=== PATIENT | female | born 1960 | race Caucasian/White ===

== ENCOUNTER 2017-04-25 17:30 | Emergency (ER) | payer OTHER ==
[~2017-04-25] VITALS: Ht 165.1 cm; Wt 108.9 kg
[~2017-04-25 17:30] MED LIST: ACETAMINOPHEN-1 EAC1 PO; AMLODIPINE BESY10 MG PO; ASPIR 8181 MG PO; CARDIZEM CD240 MG PO; FLEXERIL PO; HYDROCHLOROTH12.5 M1 PO; HYDROCODONE-AP1 EAC6 PO; LEVOTHYROXIN0.075 MG PO; PHENTERMINE H37.5 MG PO; TRAMADOL 50 MG50 MG PO; UNICOMPLEX M TA1 TA1 PO; ZOFRAN ODT4 MG PO
[2017-04-25 17:41] VITALS: BP 165/95
[2017-04-25] MEDS ORDERED: IBUPROFEN 600600 M1 PO (18:23)
[2017-04-25] MEDS ORDERED: NORCO 5-325 TA1 EACH PO (18:23)
== END 2017-04-25 18:50 | disposition home or self-care (01) ==
LOC: M.ERS 17:30
DX: S59.902A Unspecified injury of left elbow, initial encounter (principal); I10 Essential (primary) hypertension; E03.9 Hypothyroidism, unspecified; Z88.0 Allergy status to penicillin; Z90.710 Acquired absence of both cervix and uterus; Z90.49 Acquired absence of other specified parts of digestive tract

== ENCOUNTER → 2017-04-28 | Outpatient (CLI) | payer OTHER ==
[~2017-04-28] MED LIST changes: +CELEXA10 MG PO; +ESTRADIOL 1 MG T1 M1 PO; +IBUPROFEN 600600 M1 PO; +IBUPROFEN 800800 MG PO; +NORCO 5-325 TA1 EACH PO
[2017-04-28 12:58] LABS: HEMATOCRIT 40.5 % (37.0-47.0); HEMOGLOBIN 13.7 gm/dL (12.0-15.0); MCH 29.6 pg (26.0-34.0); MCHC 33.7 g/dL (28.0-37.0); MCV 87.9 fL (80.0-100.0); MPV 8.1 fl. (7.2-11.1); RBC 4.61 mil/uL (4.20-5.00); RDW-CV 13.1 % (10.5-14.5); WBC 6.7 thou/uL (4.0-11.0)
[2017-04-28 13:02] LABS: URINE BILIRUBIN NEGATIVE (Negative); URINE BLOOD NEGATIVE (Negative); URINE CLARITY CLEAR; URINE COLOR YELLOW; URINE GLUCOSE-RANDOM NEGATIVE (Negative); URINE KETONES NEGATIVE (Negative); URINE LEUKOCYTES NEGATIVE (Negative); URINE NITRITE NEGATIVE (Negative); URINE PROTEIN NEGATIVE (Negative); URINE SPECIFIC GRAVITY 1.015 (1.005-1.030); URINE UROBILINOGEN 0.2 E.U./dl (0.2-1.0)
[2017-04-28 13:17] LABS: ALBUMIN 4.2 g/dL (3.4-5.0); CALCIUM 9.7 mg/dL (8.5-10.1); CREATININE 0.9 mg/dL (0.6-1.3); TOTAL BILIRUBIN 0.4 mg/dL (<0.1-1.0)
== END ==
LOC: M.LAB 12:29
PROVIDERS: General Practice
DX: E03.9 Hypothyroidism, unspecified (principal); I10 Essential (primary) hypertension; E66.3 Overweight

== ENCOUNTER → 2017-09-22 | Outpatient (CLI) | payer OTHER | LOC: M.RAD 13:42 | DX: Z12.31 Encounter for screening mammogram for malignant neoplasm of breast (principal); N63.20 Unspecified lump in the left breast, unspecified quadrant ==

== ENCOUNTER → 2017-10-05 | Outpatient (CLI) | payer OTHER ==
--- NOTE | 2017-10-07 14:35 | PATH ---
[address] [address] PATHOLOGY RPT PROCEDURE Name: FLORENCIA EID Room: [facility] Frannie#: [id number] Admission: 10/05/17 Date of : 60 Discharge: Report #: [id number] Path Case #: [id number] [facility] Accession Number: [id number] . 01 Material submitted: . LEFT BREAST TISSUE . 01 Clinical history: . 1.9 x 1.0 x 1.5 cm mass, 1:00, 4 cm from nipple. . 02 Diagnosis: Left breast tissue, 1:00, 4 cm from nipple, image guided core biopsies: - Fibroadenoma/fibroadenomatosis and benign breast tissue, negative for atypia (see comment). [facility]/10/07/2017 . 02 Comment: In several sections, a vaguely nodular focus spanning up to 7 mm suggests a fibroadenoma/fibroadenomatosis. Reviewed with Dr. Zack Hidalgo who agrees with the diagnosis. Bharati Condon ([facility] breast navigator) notified on AM of 10/07/2017. (REBECCA:pit; 10/06/2017) . 02 Electronically signed: . Caleb Kline MD, Pathologist NPI- [id number] . 01 Gross description: . Received in formalin labeled "Florencia Eid, left breast 1:00, 4 cm FN," are multiple needle cores of yellow-[place] fibrofatty tissue measuring 1.4 x 0.6 x 0.2 cm in aggregate dimensions. The tissue is submitted in its entirety in cassettes A1 through A3. The cold ischemic time is 4 minutes. The total formalin fixation time is approximately 14 hours. (TSD; 10/05/2017) TOB/TOB . 02 Pathologist provided ICD-10: D24.2 . 02 CPT . 083846 Performed at: [address], [place] [id number] MD Kamar Guevara MD Phone: [phone] Performed at: 02 [facility] [address], [place] [id number] [address] [address] PATHOLOGY RPT PROCEDURE Name: FLORENCIA IED Room: [facility]#: [id number] Admission: 10/05/17 Date of : 60 Discharge: Report #: [id number] Path Case #: [id number] MD Caleb Kline MD Phone: [phone]
== END ==
LOC: M.ULTRA 07:30
DX: N63.20 Unspecified lump in the left breast, unspecified quadrant (principal); R92.0 Mammographic microcalcification found on diagnostic imaging of breast

== ENCOUNTER 2017-10-09 19:54 | Emergency (ER) | payer OTHER ==
[~2017-10-09] VITALS: Ht 165.1 cm; Wt 108.9 kg
[~2017-10-09 19:54] MED LIST changes: -CELEXA10 MG PO; -ESTRADIOL 1 MG T1 M1 PO; -IBUPROFEN 800800 MG PO
[2017-10-09] MEDS ORDERED: CELEXA10 MG PO (20:03)
[2017-10-09] MEDS ORDERED: ESTRADIOL 1 MG T1 M1 PO (20:04)
[2017-10-09] MEDS ORDERED: IBUPROFEN 800800 MG PO (21:26)
[2017-10-09] MEDS ORDERED: NORCO 5-325 TA1 EACH PO (21:26)
[2017-10-09 23:14] VITALS: BP 159/96
== END 2017-10-09 23:00 | disposition home or self-care (01) ==
LOC: M.ERS 19:54
DX: S82.452A Displaced comminuted fracture of shaft of left fibula, initial encounter for closed fracture (principal); S93.05XA Dislocation of left ankle joint, initial encounter; E03.9 Hypothyroidism, unspecified; I10 Essential (primary) hypertension; Z90.49 Acquired absence of other specified parts of digestive tract; Z90.710 Acquired absence of both cervix and uterus; Z88.1 Allergy status to other antibiotic agents; Z88.8 Allergy status to other drugs, medicaments and biological substances; W10.8XXA Fall (on) (from) other stairs and steps, initial encounter; Y93.89 Activity, other specified; Y92.89 Other specified places as the place of occurrence of the external cause; Y99.8 Other external cause status

== ENCOUNTER → 2018-02-23 | Outpatient (CLI) | payer OTHER ==
[~2018-02-23] MED LIST changes: +CELEXA10 MG PO; +ESTRADIOL 1 MG T1 M1 PO; +IBUPROFEN 800800 MG PO
== END ==
LOC: M.LAB 11:33
PROVIDERS: Obstetrics & Gynecology
DX: E03.9 Hypothyroidism, unspecified (principal)

== ENCOUNTER → 2018-09-27 | Outpatient (CLI) | payer OTHER ==
[2018-09-27 10:19] LABS: ABSOLUTE EOSINOPHILS 0.2 thou/uL (0.0-0.7); ABSOLUTE LYMPHOCYTES 1.9 thou/uL (0.8-5.3); ABSOLUTE MONOCYTES 0.4 thou/uL (0.0-1.2); ABSOLUTE NEUTROPHILS 3.4 thou/uL (1.6-8.1); BASOPHILS 0.6 %; EOSINOPHILS 2.6 %; HEMATOCRIT 46.4 % (37.0-47.0); HEMOGLOBIN 15.9 gm/dL (12.0-15.0); LYMPHOCYTES 32.4 %; MCH 29.7 pg (26.0-34.0); MCHC 34.2 g/dL (28.0-37.0); MCV 86.7 fL (80.0-100.0); MONOCYTES 6.6 %; MPV 8.2 fl. (7.2-11.1); NUCLEATED RBCS 0 /100WBC; PLATELET COUNT* 254 thou/uL (150-400); POLYS 57.8 %; RBC 5.36 mil/uL (4.20-5.00); RDW-CV 12.8 % (10.5-14.5); WBC 5.9 thou/uL (4.0-11.0)
[2018-09-27 10:30] LABS: CALCIUM 9.8 mg/dL (8.5-10.1); CREATININE 0.9 mg/dL (0.6-1.3); POTASSIUM 3.9 mmol/L (3.5-5.1); TOTAL BILIRUBIN 0.5 mg/dL (<0.1-1.0); TOTAL PROTEIN 7.5 g/dL (6.4-8.2)
[2018-09-27 16:07] LABS: TESTOSTERONE 140 ng/dL (3-41)
== END ==
LOC: M.LAB 09:55
PROVIDERS: Obstetrics & Gynecology
DX: N95.1 Menopausal and female climacteric states (principal); E55.9 Vitamin D deficiency, unspecified; I10 Essential (primary) hypertension

== ENCOUNTER → 2020-09-18 | Outpatient (CLI) | payer BC | LOC: M.RAD 10:48 | DX: Z12.31 Encounter for screening mammogram for malignant neoplasm of breast (principal); N64.89 Other specified disorders of breast ==